=== PATIENT | male | born 2000 | race African-American/Black ===

== ENCOUNTER 2021-07-15 19:38 | Emergency (ER) | payer MEDICAID ==
[~2021-07-15] VITALS: Ht 188 cm; Wt 78.0 kg
[2021-07-15] MEDS ORDERED: IBUPROFEN 600 MG TABLET. PO ONE (20:00)
--- NOTE | 2021-07-15 20:12 | PHYS DOC ---
General Adult EDM: Chief Complaint: FEVER HPI: HPI: Patient is a 21-year-old male who presents with fever, sore throat for 2 days. Denies nausea/vomiting/diarrhea. Denies exposure to recent sick, contact. Patient states he has been taking ibuprofen and Tylenol to treat fever with some relief. Patient reports pain with swallowing food and liquids. Denies medical history or daily meds. Vaccinations are up-to-date. (DAVID HERRMANN APRN) Review of Systems: Review of Systems: ROS At least 10 ROS systems have been reviewed and are negative except as documented in the HPI. General: Negative except as outlined in HPI above. Skin: Negative except as outlined in HPI above. HEENT: Negative except as outlined in HPI above. Neck: Negative except as outlined in HPI above. Respiratory: Negative except as outlined in HPI above.. Cardiovascular: Negative except as outlined in HPI above. Abdomen: Negative except as outlined in HPI above. : Negative except as outlined in HPI above. Back/MSK: Negative except as outlined in HPI above. Neuro: Negative except as outlined in HPI above. Psych: Negative except as outlined in HPI above. (DAVID HERRMANN APRN) Current Medications: Current Meds: Current Medications Medications (Trade) Dose Ordered Sig/Edin Start Time Stop Time Status Last Admin Dose Admin Ibuprofen (Motrin) 600 mg 1X ONCE 07/15/21 20:00 07/15/21 20:01 UNV (DAVID HERRMANN APRN) Physical Exam: PE: Constitutional: Well developed, well nourished, no acute distress, non-toxic appearance. [] HENT: Normocephalic, atraumatic, bilateral external ears normal, oropharynx moist, oral exudates seen. Eyes: PERRLA, EOMI, conjunctiva normal, no discharge. [] Neck: Normal range of motion, no tenderness, supple, no stridor. [] Cardiovascular:Heart rate regular rhythm, no murmur [] Lungs & Thorax: Bilateral breath sounds clear to auscultation [] Abdomen: Bowel sounds normal, soft, no tenderness, no masses, no pulsatile masses. [] Skin: Warm, dry, no erythema, no rash. [] Back: No tenderness, no CVA tenderness. [] Extremities: No tenderness, no cyanosis, no clubbing, ROM intact, no edema. [] Neurologic: Alert and oriented X 3, normal motor function, normal sensory function, no focal deficits noted. [] Psychologic: Affect normal, judgement normal, mood normal. [] (DAVID HERRMANN APRN) EKG: EKG: [] (DAVID HERRMANN APRN) Radiology/Procedures: Radiology/Procedures: [] (DAVID HERRMANN APRN) Heart Score: C/O Chest Pain: No Risk Factors: Risk Factors: DM, Current or recent (<one month) smoker, HTN, HLP, family history of CAD, obesity. Risk Scores: Score 0 - 3: 2.5% MACE over next 6 weeks - Discharge Home Score 4 - 6: 20.3% MACE over next 6 weeks - Admit for Clinical Observation Score 7 - 10: 72.7% MACE over next 6 weeks - Early Invasive Strategies (DAVID HERRMANN APRN) Course & Med Decision Making: Course & Med Decision Making Pertinent Labs and Imaging studies reviewed. (See chart for details) [] 21-year-old male presents with fever, sore throat for 2 days. Rapid strep ordered. Patient's pain treated in the emergency room with 600 mg Motrin. Patient given dexamethasone. Rapid strep is negative. Discussed results with patient. Educated patient on taking Motrin and Tylenol scheduled. Patient states that he understands instructions. Gargle with warm salt water. Advised patient if he does not feel better in the next 2 to 3 days he needs to follow-up with his PCP or return to the ER. Patient voices understanding of discharge instructions. Patient is hemodynamically stable on disposition. (DAVID HERRMANN APRN) Kayla Disclaimer: Kayla Disclaimer: This electronic medical record was generated, in whole or in part, using a voice recognition dictation system. (DAVID HERRMANN APRN) Departure Departure: Impression: Primary Impression: Sore throat Additional Impression: Fever Qualified Codes: R50.9 - Fever, unspecified Disposition: HOME / SELF CARE / HOMELESS Condition: STABLE Referrals: PCP,NO (PCP) Patient Instructions: Fever, Adult, [id number], Sore Throat, [id number] Additional Instructions: You are seen the emergency room for sore throat and fever. Rapid strep was negative. Make sure you are taking ibuprofen and Tylenol to treat fever. Drink plenty of fluids. Gargle with warm salt water to help with symptoms. Please follow-up with your PCP if symptoms not improved in the next 2 to 3 days. Return to the emergency room if you have worsening symptoms or concerns. EMERGENCY DEPARTMENT GENERAL DISCHARGE INSTRUCTIONS Thank you for coming to [facility] (ED) today and trusting us with you care. We trust that you had a positivie experience in our Emergency Department. If you wish to speak to the department management, you may call the director at [phone]. YOUR FOLLOW UP INSTRUCTIONS ARE FOLLOWS: 1. Do you have a private Doctor? If you do not have a private doctor, please ask for a resource list of physicians or clinics that may be able to assist you with follow up care. 2. The Emergency Physician has interpreted your x-rays. The X-Ray specialist will also review them. If there is a change in the findings, you will be notified in 48 hours when at all possible. 3. A lab test or culture has been done, your results will be reviewed and you will be notified if you need a change in treatment. ADDITIONAL INSTRUCTIONS AND INFORMATION: 1. Your care today has been supervised by a physician who is specially trained in emergency care. Many problems require more than one evaluation for a complete diagnosis and treatment. We recommend that you schedule your follow up appointment as recommended to ensure complete treatment of you illness or injury. If you are unable to obtain follow up care and continue to have a problem, or if your condition worsens, we recommend that you return to the ED. 2. We are not able to safely determine your condition over the phone nor are we able to give sound medical advice over the phone. For these safety reasons, if you call for medical advice we will ask you to come to the ED for further evaluation. 3. If you have any questions regarding these discharge instructions please call the ED at [phone]. SAFETY INFORMATION: In the interest of safety, wellness, and injury prevention; we encourage you to wear your sealbelt, if you smoke; quite smoking, and we encourage family to use a protective helmet for bicycling and other sporting events that present an increased risk for head injury. IF YOUR SYMPTOMS WORSEN OR NEW SYMPTOMS DEVELOP, OR YOU HAVE CONCERNS ABOUT YOUR CONDITION; OR IF YOUR CONDITION WORSENS WHILE YOU ARE WAITING FOR YOUR FOLLOW UP APPOINTMENT; EITHER CONTACT YOUR PRIMARY CARE DOCTOR, THE PHYSICIAN WHOSE NAME AND NUMBER YOU WERE GIVEN, OR RETURN TO THE ED IMMEDIATELY. Attending Signature Attending Signature I have participated in the care of this patient and I have reviewed and agree with all pertinent clinical information above including history, exam, and recommendations. (TIM TURCIOS MD) DAVID HERRMANN APRN Jul 15, 2021 20:12 TIM TURCIOS MD Jul 16, 2021 08:29
[2021-07-15 21:01] VITALS: BP 131/80
[2021-07-15] MEDS ORDERED: DEXAMETHASONE SOD PHOS 10 MG/ML VIAL. PO ONE (22:00)
== END 2021-07-15 22:05 | disposition home or self-care (01) ==
LOC: ER 19:38
DX: J02.9 Acute pharyngitis, unspecified (principal)
CPT/HCPCS: 87070; 87880; 99283; J1100